=== PATIENT | female | born 1950 | race Caucasian/White ===

== ENCOUNTER → 2019-05-27 16:21 | Outpatient (CLI) | payer OTHER, SELFPAY ==
--- NOTE | 2019-05-27 | DI.MG.S_ITS ---
BILATERAL DIGITAL SCREENING MAMMOGRAM 3D/2D WITH CAD: 05/27/2019 CLINICAL: Routine screening. Comparison is made to exams dated: 11/06/2016 mammogram, 07/21/2015 mammogram, and 11/09/2012 mammogram - [facility]. There are scattered fibroglandular elements in both breasts. Current study was also evaluated with a Computer Aided Detection (CAD) system. There are benign diffuse calcifications in both breasts. No significant masses, calcifications, or other findings are seen in either breast. There has been no significant interval change. IMPRESSION: There is no mammographic evidence of malignancy. A 1 year screening mammogram is recommended. This exam was interpreted at Station ID: [id number]. NOTE: For mammograms, a report in lay terms will be sent to the patient. Approximately 15% of breast malignancies will not be visualized mammographically. In the management of a palpable breast mass, a negative mammogram must not discourage biopsy of a clinically suspicious lesion. Electronically Signed By: Balwinder gunter/goran:05/27/2019 18:58:15 letter sent: Normal Exam ACR BI-RADS Category 2: Benign Finding(s) 3342F
== END ==
PROVIDERS: Family Provider Family Medicine; PCP Family Medicine; Visit Provider Family Medicine
DX: Z12.31 Encounter for screening mammogram for malignant neoplasm of breast (principal)
CPT/HCPCS: 77063; 77067

== ENCOUNTER → 2020-03-21 13:09 | Outpatient (CLI) | payer OTHER, SELFPAY ==
--- NOTE | 2020-03-21 | DI.RAD.S_ITS ---
PROCEDURE: XR ANKLE LT MIN 3V INDICATIONS: LEFT ANKLE PAIN. NO TRAUMA TECHNIQUE: 3 views of the ankle were acquired. COMPARISON: None. FINDINGS: Bones: No fractures or dislocations. Ankle mortise is normally aligned. No suspicious bony lesions. Mild degenerative joint disease at the tailor navicular joint. Soft tissues: Probable tibiotalar joint effusion. Achilles tendon appears normal. Soft tissue swelling over the lateral malleolus. IMPRESSION: 1. Mild degenerative joint disease. 2. Trace tibiotalar joint effusion. Dictated by: Latha Elkins M.D. on 03/21/2020 at 17:57 Approved by: Latha Elkins M.D. on 03/21/2020 at 17:59
== END ==
PROVIDERS: Family Provider Family Medicine; PCP Family Medicine; Referring Provider Family Medicine; Visit Provider Family Medicine
DX: M25.572 Pain in left ankle and joints of left foot (principal); M19.072 Primary osteoarthritis, left ankle and foot
CPT/HCPCS: 73610

== ENCOUNTER → 2020-03-22 14:34 | Outpatient (CLI) | payer OTHER, SELFPAY | PROVIDERS: Family Provider Family Medicine; PCP Family Medicine; Referring Provider Family Medicine; Visit Provider Family Medicine | DX: M85.852 Other specified disorders of bone density and structure, left thigh (principal); Z78.0 Asymptomatic menopausal state; E07.9 Disorder of thyroid, unspecified | CPT/HCPCS: 77080 ==

== ENCOUNTER → 2020-11-14 08:35 | Outpatient (CLI) | payer MEDICARE, SELFPAY ==
[2020-11-14] MEDS: COVID-19 VACC #1, MRNA(MOD) 100 MCG/0.5 ML VIAL IM (08:45)
== END ==
PROVIDERS: Family Provider Family Medicine; PCP Family Medicine; Visit Provider Internal Medicine
DX: Z23 Encounter for immunization (principal)
CPT/HCPCS: 0011A; 91301

== ENCOUNTER → 2020-12-13 08:31 | Outpatient (CLI) | payer MEDICARE, SELFPAY ==
[2020-12-13] MEDS: COVID-19 VACC #2, MRNA(MOD) 100 MCG/0.5 ML VIAL IM (08:45)
== END ==
PROVIDERS: Family Provider Family Medicine; PCP Family Medicine; Visit Provider Internal Medicine
DX: Z23 Encounter for immunization (principal)
CPT/HCPCS: 0012A; 91301

== ENCOUNTER → 2021-09-14 10:22 | Outpatient (CLI) | payer OTHER, SELFPAY ==
--- NOTE | 2021-09-14 | DI.MG.S_ITS ---
BILATERAL DIGITAL SCREENING MAMMOGRAM 3D/2D WITH CAD: 09/14/2021 CLINICAL: Routine screening. Comparison is made to exams dated: 05/27/2019 mammogram, 11/06/2016 mammogram, and 07/21/2015 mammogram - [facility]. There are scattered fibroglandular elements in both breasts. Current study was also evaluated with a Computer Aided Detection (CAD) system. There are benign diffuse calcifications in both breasts. No significant masses, calcifications, or other findings are seen in either breast. There has been no significant interval change. IMPRESSION: BENIGN There is no mammographic evidence of malignancy. A 1 year screening mammogram is recommended. This exam was interpreted at Station ID: [id number]. NOTE: For mammograms, a report in lay terms will be sent to the patient. Approximately 15% of breast malignancies will not be visualized mammographically. In the management of a palpable breast mass, a negative mammogram must not discourage biopsy of a clinically suspicious lesion. Electronically Signed By: George Mckenna M.D., jr/goran:09/14/2021 11:58:44 letter sent: Normal Exam ACR BI-RADS Category 2: Benign Finding(s) 3342F
== END ==
PROVIDERS: Family Provider Family Medicine; PCP Family Medicine; Referring Provider Family Medicine; Visit Provider Family Medicine
DX: Z12.31 Encounter for screening mammogram for malignant neoplasm of breast (principal)
CPT/HCPCS: 77063; 77067

== ENCOUNTER → 2022-03-13 12:23 | Outpatient (CLI) | payer OTHER, SELFPAY | PROVIDERS: Family Provider Family Medicine; PCP Family Medicine; Referring Provider Family Medicine; Visit Provider Family Medicine | DX: M81.0 Age-related osteoporosis without current pathological fracture (principal); Z13.820 Encounter for screening for osteoporosis; Z78.0 Asymptomatic menopausal state | CPT/HCPCS: 77080 ==

== ENCOUNTER → 2022-10-29 08:19 | Outpatient (CLI) | payer OTHER, SELFPAY ==
--- NOTE | 2022-10-29 | DI.MG.S_ITS ---
BILATERAL DIGITAL SCREENING MAMMOGRAM 3D/2D WITH CAD: 10/29/2022 CLINICAL: Routine screening. Comparison is made to exams dated: 09/14/2021 mammogram, 05/27/2019 mammogram, and 11/06/2016 mammogram - [facility]. There are scattered areas of fibroglandular density in both breasts (category b / 25%-50% glandular tissue). Current study was also evaluated with a Computer Aided Detection (CAD) system. There are benign diffuse calcifications in both breasts. No significant masses, calcifications, or other findings are seen in either breast. There has been no significant interval change. IMPRESSION: BENIGN There is no mammographic evidence of malignancy. A 1 year screening mammogram is recommended. Based on the Tyrer Cuzick model (a risk assessment model) the patient's lifetime risk is 4.7% and her 10 year risk is 3.5%. According to the ACR, ACS, and NCCN guidelines, an annual breast MRI exam along with mammogram is recommended if the patient's lifetime risk is 20% or greater. This exam was interpreted at Station ID: [id number]. NOTE: For mammograms, a report in lay terms will be sent to the patient. Approximately 15% of breast malignancies will not be visualized mammographically. In the management of a palpable breast mass, a negative mammogram must not discourage biopsy of a clinically suspicious lesion. Electronically Signed By: George Mckenna M.D., jr/goran:10/29/2022 14:37:24 letter sent: Normal Exam ACR BI-RADS Category 2: Benign Finding(s) 3342F
== END ==
PROVIDERS: Family Provider Family Medicine; PCP Family Medicine; Referring Provider Family Medicine; Visit Provider Family Medicine
DX: Z12.31 Encounter for screening mammogram for malignant neoplasm of breast (principal)
CPT/HCPCS: 77063; 77067

== ENCOUNTER → 2023-03-25 09:37 | Outpatient (CLI) | payer OTHER, SELFPAY ==
--- NOTE | 2023-03-25 09:47 | DI.DEXA.S_ITS ---
Bone Density Report Name: KEISHA FREITAS Age: 72 Sex: Female Ethnicity: White Date of : 1950 Indication: osteopenia; Referring Provider: PIERCE DAWKINS Study: Bone densitometry was performed. Exam Date: March 25, 2023 Accession number: [id number] Bone Density: Region BMD T-score Z-score Classification AP Spine(L1-L4) 0.833 -1.9 0.3 Osteopenia Femoral Neck (Left) 0.574 -2.5 -0.5 Osteoporosis Total Hip (Left) 0.687 -2.1 -0.4 Osteopenia Femoral Neck (Right) 0.673 -1.6 0.4 Osteopenia Total Hip (Right) 0.746 -1.6 0.0 Osteopenia Total Hip Mean 0.717 -1.9 -0.2 Osteopenia World Health Organization criteria for BMD impression classify patients as: Normal (T-score at or above -1.0), Osteopenia (T-score between -1.0 and -2.5), or Osteoporosis (T-score at or below -2.5). 10-year Fracture Risk: FRAX not reported because: Some T-score for Spine Total or Hip Total or Femoral Neck at or below -2.5 Previous Exams: -- Region Exam Age BMD T-score BMD Change BMD Change Date g/cm2 vs Baseline vs Previous -- AP Spine (L1-L4) 03/25/2023 72 0.833 -1.9 -0.017 (-1.9%) -0.017 (-1.9%) 03/13/2022 71 0.850 -1.8 Total Hip(Left) 03/25/2023 72 0.687 -2.1 0.015 (2.2%) 0.015 (2.2%) 03/13/2022 71 0.672 -2.2 Total Hip(Right) 03/25/2023 72 0.746 -1.6 0.003 (0.4%) 0.003 (0.4%) 03/13/2022 71 0.743 -1.6 -- *Denotes significance at 95% confidence level, LSC for AP Spine = 0.022 g/cm2, LSC for Total Hip = 0.027 g/cm2 Impression: The patient has osteoporosis, based on the Left Femoral Neck T-score. No significant bone loss was observed. Discussion: INCREASED RISK OF FRACTURE. BONE DENSITY IS UNDESIRABLY LOW AT ONE OR MORE SKELETAL SITES, CONSISTENT WITH POSTMENOPAUSAL OSTEOPOROSIS. This patient's lowest T-score meets the World Health Organization's (WHO) criteria for osteoporosis at one or more sites (T-score -2.5 or below). In untreated patients, the risk of osteoporotic fracture increases approximately two-fold for each 1.0 SD decrease in T-score. Low bone density is not the only risk factor for fracture; also consider factors such as patient's age, frailty or poor health, risk of falling, risk of injury, previous osteoporotic fracture, family history of osteoporosis, cigarette smoking, low body weight, etc. Not everyone with low bone mineral density has osteoporosis; osteomalacia and other metabolic bone disorders should also be considered. Patients who have osteoporosis should be evaluated for specific diseases and conditions (secondary causes) that may cause or contribute to bone loss. The [place] Association [employer] Clinical Endocrinologists (AACE) and National Osteoporosis Foundation (NOF) recommend pharmacologic intervention for all postmenopausal women whose T-score is in this range. The patient should follow a healthful lifestyle (good nutrition with adequate calcium and vitamin D, and appropriate weight-bearing exercise). Follow-Up: Consider a repeat BMD and Vertebral Fracture Assessment (VFA) exam in 2 years or sooner if medically necessary, to reassess this patient's status. Reported by: DIPAK FERREIRA M.D. on 03/25/2023 9:57:00 AM.
== END ==
PROVIDERS: Family Provider Family Medicine; PCP Family Medicine; Referring Provider Family Medicine; Visit Provider Family Medicine
DX: M81.0 Age-related osteoporosis without current pathological fracture (principal)
CPT/HCPCS: 77080

== ENCOUNTER → 2023-04-11 08:40 | Outpatient (CLI) | payer OTHER, SELFPAY ==
[2023-04-11 10:25] LABS: Alanine Aminotransferase 29 IU/L (<35); Albumin Globulin Ratio 1.6 (1.0-2.8); Alkaline Phosphatase 76 U/L (38-126); Aspartate Aminotransferase 39 IU/L (14-36); BUN Creatinine Ratio 27.6 (6-22); Bilirubin Total 0.7 mg/dL (0.2-1.3); Blood Urea Nitrogen 16 mg/dL (7-17); Calcium 9.4 mg/dL (8.4-10.2); Carbon Dioxide 29 mmol/L (22-32); Chloride 105 mmol/L (98-107); Cholesterol 171 mg/dL (140-199); Estimated Glomerular Filt Rate > 60 mL/min (>60); Globulin 2.5 g/dL (1.7-4.1); Glucose 82 mg/dL (80-110); HDL Cholesterol 63 mg/dL (40-60); HEMOLYSIS < 15 (0-50); LDL Cholesterol Calculated 76 mg/dL (<100); Potassium 4.3 mmol/L (3.4-5.1); Sodium 140 mmol/L (137-145); Total Protein 6.5 g/dL (6.3-8.2); Triglycerides 160 mg/dL (35-150)
[2023-04-11 10:55] LABS: TSH w/ Reflex to FT4 0.99 uIU/mL (0.47-4.68)
== END ==
PROVIDERS: Family Provider Family Medicine; PCP Family Medicine; Referring Provider Family Medicine; Visit Provider Family Medicine
DX: E78.5 Hyperlipidemia, unspecified (principal); I10 Essential (primary) hypertension; E03.9 Hypothyroidism, unspecified
CPT/HCPCS: 36415; 80053; 80061; 84443

== ENCOUNTER → 2023-11-06 15:15 | Outpatient (CLI) | payer OTHER, SELFPAY ==
--- NOTE | 2023-11-06 | DI.MG.S_ITS ---
BILATERAL DIGITAL SCREENING MAMMOGRAM 3D/2D WITH CAD: 11/06/2023 CLINICAL: Routine screening. Comparison is made to exams dated: 10/29/2022 mammogram, 09/14/2021 mammogram, and 05/27/2019 mammogram - [facility]. There are scattered areas of fibroglandular density in both breasts (category b / 25%-50% glandular tissue). Current study was also evaluated with a Computer Aided Detection (CAD) system. There are benign diffuse calcifications in both breasts. No significant masses, calcifications, or other findings are seen in either breast. There has been no significant interval change. IMPRESSION: BENIGN There is no mammographic evidence of malignancy. A 1 year screening mammogram is recommended. Based on the Tyrer Cuzick model (a risk assessment model) the patient's lifetime risk is 4.4% and her 10 year risk is 3.6%. According to the ACR, ACS, and NCCN guidelines, an annual breast MRI exam along with mammogram is recommended if the patient's lifetime risk is 20% or greater. This exam was interpreted at Station ID: [id number]. NOTE: For mammograms, a report in lay terms will be sent to the patient. Approximately 15% of breast malignancies will not be visualized mammographically. In the management of a palpable breast mass, a negative mammogram must not discourage biopsy of a clinically suspicious lesion. Electronically Signed By: Hilary fine/goran:11/07/2023 16:51:42 letter sent: Normal Exam ACR BI-RADS Category 2: Benign Finding(s) 3342F
== END ==
LOC: MAMMO 15:15
PROVIDERS: Family Provider Family Medicine; PCP Family Medicine; Referring Provider Family Medicine; Visit Provider Family Medicine
DX: Z12.31 Encounter for screening mammogram for malignant neoplasm of breast (principal); R92.323 Mammographic fibroglandular density, bilateral breasts
CPT/HCPCS: 77063; 77067

== ENCOUNTER → 2023-12-19 13:56 | Outpatient (CLI) | payer OTHER, SELFPAY ==
--- NOTE | 2023-12-19 13:58 | DI.ECHO.S_ITS ---
[facility] : : [id number] : : [place] : : [id number] : : Phone: [phone] Echocardiogram Report + + :Name: KEISHA FREITAS Study Date: 12/19/2023 Height: 64 in : :Hospital ReadingLocation: Weight: 154 lb : : Gender: Female BSA: 1.8 m2 : :: 1950 Age: 73 yrs BP: 156/85 mmHg: :Reason For Study: SYNCOPE AND COLLAPSE : :Ordering Physician: MARIZA, : :PIERCE Performed By: Makenzie Chino : :Referring: PIERCE DAWKINS : + + Interpretation Summary The left ventricle is normal in size and wall thickness. Left ventricular systolic function appears normal without focal wall motion abnormalities. The ejection fraction is estimated to be 60-65%. Diastolic parameters suggest probable normal left ventricular diastolic function and normal filling pressures. The right ventricular cavity is small. Right ventricular systolic function is at the lower limits of normal. Borderline left atrial enlargement. Right atrial size is normal. There is mild aortic valve sclerosis. There is no hemodynamically significant valvular aortic stenosis. The aortic root is normal size. Procedure: A two-dimensional transthoracic echocardiogram with color flow and Doppler was performed. The patient had an echocardiogram, but there is no comparison study available. The study quality was technically difficult. Patient has pectus excavatum. The patient was in sinus rhythm with heart rates between 53-70 bpm during the exam. Left Ventricle: The left ventricle is normal in size and wall thickness. Left ventricular systolic function appears normal without focal wall motion abnormalities. The ejection fraction is estimated to be 60-65%. Diastolic parameters suggest probable normal left ventricular diastolic function and normal filling pressures. Right Ventricle: The right ventricular cavity is small. Right ventricular systolic function is at the lower limits of normal. Atria: Borderline left atrial enlargement. Right atrial size is normal. There is no Doppler evidence for an interatrial shunt. Mitral Valve: The mitral valve is normal in structure and function. There is no mitral regurgitation noted. Aortic Valve: The aortic valve is mildly calcified. There is mild aortic valve sclerosis. There is no hemodynamically significant valvular aortic stenosis. The peak aortic velocity is 1.8 m/sec. The aortic valve mean gradient is 8 mmHg. The calculated aortic valve area is 2.2 cm2. No aortic regurgitation is present. Tricuspid Valve: The tricuspid valve is normal in structure and function. There is trace tricuspid regurgitation. Pulmonic Valve: The pulmonic valve is not well visualized. Great Vessels: The aortic root is normal size. The dimensions of the ascending aorta are normal. The IVC is of normal diameter and collapses greater than 50% with a sniff. This suggests a low right atrial pressure of 3 mm Hg. Pericardium/ Pleura There is no pericardial effusion. There is no pleural effusion. MMode/2D Measurements & Calculations LVIDd: 4.3 cm LVOT diam: 2.2 cm LVIDs: 2.8 cm Ao root diam: 2.8 cm FS: 34.4 % asc Aorta Diam: 3.5 cm IVSd: 0.82 cm Ao Arch Diam (Prox Trans): 2.7 cm LVPWd: 1.1 cm LV breaux. diameter/BSA (cm/m^2): 2.4 LV sys. diameter/BSA (cm/m^2): 1.6 LA A2 area: 18.3 cm2 RA long axis: 5.3 cm LA A4 area: 21.6 cm2 RA area: 13.6 cm2 LA length (vol): 5.7 cm RA vol: 29.3 ml LA vol: 58.4 ml RA : 16.7 ml/m2 LA vol index: 33.4 ml/m2 IVC diam: 1.5 cm RVD1 (basal): 2.5 cm RVD2 (mid): 1.7 cm TAPSE: 1.6 cm Doppler Measurements & Calculations Ao V2 max: 181.0 cm/sec LVOT Max Alfredo: 101.5 cm/sec Ao V2 mean: 137.4 cm/sec LV V1 max P.1 mmHg Ao max P.1 mmHg LV V1 VTI: 22.9 cm Ao mean P.0 mmHg MABEL(I,D): 1.9 cm2 Ao V2 VTI: 46.5 cm MABEL(V,D): 2.2 cm2 sev ratio: 0.49 MABEL indexed to BSA (cm^2/m^2): 1.1 MV E max alfredo: 72.4 cm/sec TR max alfredo: 222.5 cm/sec MV A max alfredo: 58.0 cm/sec TR max P.8 mmHg MV E/A: 1.2 Med Peak E' Alfredo: 9.8 cm/sec E/E' med: 7.4 Lat Peak E' Alfredo: 14.1 cm/sec E/E' lat: 5.2 E/e' average: 6.3 MV dec time: 0.19 sec SV(LVOT): 88.6 ml Reading Physician:03:56 PM
== END ==
LOC: ECHO 13:57
PROVIDERS: Family Provider Family Medicine; PCP Family Medicine; Referring Provider Family Medicine; Visit Provider Family Medicine
DX: R07.9 Chest pain, unspecified (principal); I35.8 Other nonrheumatic aortic valve disorders; R42 Dizziness and giddiness; R55 Syncope and collapse
CPT/HCPCS: 93306

== ENCOUNTER → 2024-01-05 09:23 | Outpatient (CLI) | payer OTHER, SELFPAY ==
--- NOTE | 2024-01-05 09:28 | DI.NM.S_ITS ---
PROCEDURE: NM MARCO PERF SPECT REST & STR Rest and exercise myocardial perfusion SPECT with gated imaging and ejection fraction RADIOPHARMACEUTICAL: 9.5 mCi Tc-99m sestamibi IV at rest and 25.1 mCi Tc-99m sestamibi IV at peak exercise. A [id number] was performed. INDICATIONS: Syncope and collapse TECHNIQUE: Radiopharmaceutical was injected at peak stress test, and also at rest. SPECT images were obtained. SPECT myocardial perfusion images were displayed in short axis, horizontal long axis, and vertical long axis views. Gated images were reviewed using Traiana software. COMPARISON: None. CARDIAC STRESS: A standard Horace treadmill exercise tolerance test was performed by the patient under the supervision of an attending staff. The patient exercised for 4 minutes and 48 seconds; 7.0 METS; functional aerobic impairment (JEANNETTE) is +11%. Hemodynamic data: There is normal blood pressure and heart rate response to exercise stress. Patient achieved 93% of maximum predicted heart rate at peak exercise. Maximum blood pressure 180/78. Symptoms: Patient denied chest pain during exercise. EKG: No diagnostic EKG changes of ischemia; no ectopy. FINDINGS: Raw data: There is good myocardial labeling by radiotracer. No significant motion artifacts. Actl-fe-odfzz ratio is 0.24 (normal is less than 0.38 for sestamibi tracer, and less than 0.50 for thallium tracer). Left ventricle function: Gated images demonstrate normal left ventricle wall thickening. No segmental wall motion abnormality. No transient ischemic dilation; TID is 0.96 (normal less than 1.3). The left ventricle resting end-diastolic volume is 94 mL. Left ventricle stress ejection fraction is 75%; normal values are above 45%. Myocardial perfusion: There is normal distribution of activity in the left and right ventricular myocardium. No fixed or reversible perfusion defects. IMPRESSION: Low risk study. No evidence of exercise-induced ischemia on ECG or SPECT imaging. Normal LV size and function. Normal hemodynamic response. Mildly reduced exercise capacity. Dictated by: Janet Gama D.O. on 01/05/2024 at 16:28 Approved by: Janet Gama D.O. on 01/05/2024 at 16:32
--- NOTE | 2024-01-05 09:30 | DI.US.S_ITS ---
PROCEDURE: US CAROTID DOPPLER BI INDICATIONS: Syncope and collapse TECHNIQUE: Color and pulse Doppler interrogation was performed of both carotid systems, with image documentation and velocity measurements. COMPARISON: None. FINDINGS: Stenosis calculations are based on SRU (Society of Radiologists in Ultrasound) criteria. The flow velocities and the arterial waveforms are normal within both carotid arterial systems. No significant atherosclerotic plaque is seen. The estimated degree of internal carotid artery stenosis is less than 50%. Antegrade flow is confirmed within both vertebral arteries. IMPRESSION: No hemodynamically significant stenosis is seen. Dictated by: Shashank Apodaca M.D. on 01/05/2024 at 14:03 Approved by: Shashank Apodaca M.D. on 01/05/2024 at 14:04
== END ==
PROVIDERS: Family Provider Family Medicine; PCP Family Medicine; Referring Provider Family Medicine; Visit Provider Family Medicine
DX: R07.9 Chest pain, unspecified (principal); R42 Dizziness and giddiness; I10 Essential (primary) hypertension
CPT/HCPCS: 78452; 93017; 93880; A9502

== ENCOUNTER → 2025-03-28 09:43 | Outpatient (CLI) | payer OTHER, SELFPAY ==
--- NOTE | 2025-03-28 09:44 | DI.RAD.S_ITS ---
PROCEDURE: XR DEXA AXIAL SKELETON INDICATIONS: osteoporosis COMPARISON: [facility], , XR DEXA AXIAL SKELETON, 03/25/2023, 9:47. FINDINGS: Lumbar Spine: Bone mineral density 0.881 (previously 0.833) g/cm2, T score -1.5 (previously-1.9). Left Femoral Neck: Bone mineral density 0.552 (previously 0.574) g/cm2, T score -2.7 (previously-2.5). Left Hip: Bone mineral density 0.693 (previously 0.687) g/cm2, T score -2.0 (previously-2.1). Fracture Risk Calculation (when applicable): 10-year fracture risk of a major osteoporotic fracture 17 percent and of a hip fracture 5.2 percent. IMPRESSION: Osteoporosis Follow-up guidelines as follows: Osteoporosis: Consider a repeat DEXA and Vertebral Fracture Assessment (VFA) exam in 2 years or sooner if medically necessary, to reassess this patient's status. Osteopenia: Consider a repeat DEXA in 2-3 years to reassess this patient's status, or if there is a new clinical indication. Normal: Consider a repeat DEXA in 5 years or sooner, or if there is a new clinical indication. All treatment decisions require clinical judgment and consideration of individual patient factors, including patient preferences, comorbidities, previous drug use, risk factors not captured in the FRAX model (e.g., frailty, falls, vitamin D deficiency, increased bone turnover, interval significant decline in bone density ) and possible under- or over-estimation of fracture risk by FRAX. In addition, the NOF Guide recommends that FDA-approved medical therapies be considered in postmenopausal women and men age >= 50 years with a: * Hip or vertebral (clinical or morphometric) fracture * T-score of <=-2.5 at the spine or hip * Ten-year fracture probability by FRAX of >= 3% for hip fracture or >=20% for major osteoporotic fracture. Dictated by: Michael Bradford M.D. on 03/29/2025 at 17:49 Approved by: Michael Bradford M.D. on 03/29/2025 at 17:50
== END ==
LOC: RAD 09:43
PROVIDERS: Family Provider Family Medicine; PCP Family Medicine; Referring Provider Family Medicine; Visit Provider Family Medicine
DX: M81.0 Age-related osteoporosis without current pathological fracture (principal)
CPT/HCPCS: 77080